=== PATIENT | female | born 1995 | race Two or more races ===

== ENCOUNTER → 2017-02-03 | Outpatient (REF) | payer OTHER | LOC: M SFHCLERA 17:17 | PROVIDERS: ATTEND Nurse Practitioner Family | DX: L03.818 Cellulitis of other sites (principal) ==

== ENCOUNTER → 2017-04-07 | Outpatient (REF) | payer OTHER | LOC: M SFHCLERA 16:51 | PROVIDERS: ATTEND Physician Assistant | DX: R11.2 Nausea with vomiting, unspecified (principal) ==

== ENCOUNTER → 2018-10-24 | Outpatient (REF) | payer OTHER | LOC: M SFHCLERA 14:56 | PROVIDERS: ATTEND Nurse Practitioner Family | DX: R11.10 Vomiting, unspecified (principal) ==

== ENCOUNTER → 2019-10-18 | Outpatient (CLI) | payer OTHER ==
--- NOTE | 2019-10-18 17:59 | REP ---
CHEST, TWO VIEWS: There is no evidence of acute infiltrate. No pleural effusion is seen. The heart is normal in size. The mediastinal silhouette is unremarkable. The visualized osseous structures are intact. IMPRESSION: No acute pulmonary disease. Electronically Signed by Leon Stephenson MD 10/19/2019 10:29 P
== END ==
LOC: M LRY 17:32
PROVIDERS: ATTEND Physician Assistant
DX: R50.9 Fever, unspecified (principal)

== ENCOUNTER → 2019-10-18 | Outpatient (REF) | payer OTHER | LOC: M SFHCLERA 19:29 | PROVIDERS: ATTEND Physician Assistant | DX: R50.9 Fever, unspecified (principal) ==

== ENCOUNTER → 2019-12-26 | Outpatient (REF) | payer OTHER | LOC: M SFHCLERA 18:45 | PROVIDERS: ATTEND Physician Assistant | DX: R10.13 Epigastric pain (principal) ==

== ENCOUNTER → 2021-05-07 | Outpatient (REF) | payer OTHER ==
[2021-05-07 22:43] LABS: APPEARANCE, URINE CLOUDY (CLEAR); BACTERIA, URINE AUTO 1+ (NEGATIVE); BILIRUBIN, URINE AUTO NEGATIVE (NEGATIVE); BLOOD, URINE BLOOD 3+ (NEGATIVE); COLOR, URINE YELLOW (YELLOW); GLUCOSE, URINE (UA) AUTO NEGATIVE (NEGATIVE); KETONE, URINE AUTO NEGATIVE (NEGATIVE); LEUKOCYTE ESTERASE, URINE AUTO 3+ (NEGATIVE); MUCUS, URINE SMALL (NEGATIVE); NITRITE, URINE AUTO NEGATIVE (NEGATIVE); PROTEIN, URINE AUTO 2+ mg/dL (NEGATIVE); RBC, URINE AUTO 4 /HPF (0-3); SPECIFIC GRAVITY URINE AUTO 1.014 (1.002-1.035); SQUAMOUS EPITHELIAL CELL UR AU 4 /HPF (0-6); UROBILINOGEN, URINE AUTO 0.2 mg/dL (0.0-2.0); WBC, URINE AUTO TNTC /HPF (0-3)
== END ==
LOC: M LAB REF 22:16
PROVIDERS: ATTEND Physician Assistant Medical
DX: R30.0 Dysuria (principal)